=== PATIENT | female | born 1995 | race African-American/Black ===

== ENCOUNTER 2019-02-04 12:15 | Emergency (ER) | payer OTHER ==
[2019-02-04] MEDS ORDERED: IV NORMAL SALINE 1,000ML 1,000 ML IV SCH (14:01)
[2019-02-04 14:30] LABS: BASO % 0 % (0-3); EOS % 1 % (0-3); HEMATOCRIT 37.5 % (36.0-47.0); HEMOGLOBIN 12.7 g/dL (12.0-15.5); LYMPH # 1.3 x10^3/uL (1.0-4.8); LYMPH % 18 % (24-48); MEAN CORPUSCULAR HEMOGLOBIN 33 pg (25-35); MEAN CORPUSCULAR HGB CONC 34 g/dL (31-37); MEAN CORPUSCULAR VOLUME 96 fL (79-100); MONO # 0.6 x10^3/uL (0.0-1.1); MONO % 8 % (0-9); NEUT # 5.4 x10^3uL (1.8-7.7); NEUT % 74 % (31-73); PLATELET COUNT 246 x10^3/uL (140-400); RED BLOOD COUNT 3.92 x10^6/uL (3.50-5.40); WHITE BLOOD COUNT 7.3 x10^3/uL (4.0-11.0)
[2019-02-04 14:31] LABS: BACTERIA,URINE FEW /HPF (0-FEW); BILIRUBIN,URINE NEG (NEG); CLARITY,URINE HAZY; COLOR,URINE YELLOW; GLUCOSE,URINE NEG (NEG); NITRITE,URINE NEG (NEG); RBC,URINE 0 /HPF (0-2); SQUAMOUS EPITHELIAL CELL,UR MOD /LPF; UROBILINOGEN,URINE 0.2 mg/dL (0.2 mg/dL)
[2019-02-04 14:47] LABS: ALBUMIN 3.9 g/dL (3.4-5.0); ALBUMIN/GLOBULIN RATIO 0.9 (1.0-1.7); CALCIUM 9.5 mg/dL (8.5-10.1); CREATININE 0.7 mg/dL (0.6-1.0); GFR 124.4; POTASSIUM 3.8 mmol/L (3.5-5.1); TOTAL BILIRUBIN 0.4 mg/dL (0.2-1.0); TOTAL PROTEIN 8.2 g/dL (6.4-8.2)
--- NOTE | 2019-02-04 15:12 | RAD ---
First trimester ultrasound less than 14 weeks: Clinical indications: Positive test. Left-sided pelvic pain. Findings: Transabdominal study: Number of fetuses: Single. Average crown-rump length: 1.54 cm which corresponds to an approximate gestational age of 7 weeks and 6 days +/- 5 days. EDC is September 17, 2019. Sac shape and amniotic fluid volume: Normal. heart rate: 165 beats per minute Placenta location: Indeterminate due to the early stage of gestation. Cervical length: Greater than 3 cm. Extrachorionic hemorrhage: None. Uterus: No uterine fibroids are seen. Maternal ovaries: Right ovary: 2.5 cm x 3.7 cm x 3.8 cm. Normal. Color-flow Doppler: Present Left ovary: 1.7 cm x 4.0 cm x 5.1 cm. Normal. Color-flow Doppler: Present Adnexa: no adnexal masses are seen. Free fluid: None. Impression: Single intrauterine gestation with approximate gestational age of 7 weeks and 6 days with an EDC of September 17, 2019. heart rate is 165 beats per minute. Electronically signed by: Cuauhtemoc Logan MD (02/04/2019 3:09 PM) [place] [id number]
--- NOTE | 2019-02-04 15:25 | PHYS DOC ---
Past History Past Medical History: Other Past Surgical History: No Surgical History Alcohol Use: Occasionally Drug Use: Marijuana Adult General Chief Complaint Chief Complaint: MENSTRUAL PAIN/CRAMPS HPI HPI Patient is a 23 year old female who presents with complaint of pelvic pain. Patient states that her pain has been present over the past 4 days. Patient states that she usually worse in the morning. The patient states that she recently had a spontaneous vaginal delivery on November 07, 2018. The patient states that she has not had a menstrual period since her . She notes that on January 11, 2019, she took tests that were all positive. Patient has not followed with an [facility] for care at this time. Patient states that the pain is intermittent and sharp. States it radiates to her left lower back. Currently does not have pain. Denies any associated vaginal bleeding or discharge. Review of Systems Review of Systems Constitutional: Denies fever or chills [] Eyes: Denies change in visual acuity, redness, or eye pain [] HENT: Denies nasal congestion or sore throat [] Respiratory: Denies cough or shortness of breath [] Cardiovascular: Denies chest pain or edema[] GI: Abdominal pain, denies nausea, vomiting, bloody stools or diarrhea [] : Denies vaginal bleeding, dysuria or hematuria [] Musculoskeletal: Denies back pain or joint pain [] Integument: Denies rash or skin lesions [] Neurologic: Denies headache, focal weakness or sensory changes [] All other systems were reviewed and found to be within normal limits, except as documented in this note. Current Medications Current Medications Current Medications Medications (Trade) Dose Ordered Sig/[facility] Start Time Stop Time Status Last Admin Dose Admin Sodium Chloride 1,000 ml @ 1,000 mls/hr Q1H 02/04/19 14:01 02/04/19 15:00 DC 02/04/19 14:16 1,000 MLS/HR Allergies Allergies Allergies Coded Allergies Type Severity Reaction Last Updated Verified povidone-iodine Allergy Unknown 02/04/19 Yes soap Allergy Unknown 02/04/19 Yes Physical Exam Physical Exam Constitutional: Well developed, well nourished, no acute distress, non-toxic appearance. [] HENT: Normocephalic, atraumatic, bilateral external ears normal, oropharynx moist, no oral exudates, nose normal. [] Eyes: PERRLA, EOMI, conjunctiva normal, no discharge. [] Neck: Normal range of motion, no tenderness, supple, no stridor. [] Cardiovascular:Heart rate regular rhythm, no murmur [] Lungs & Thorax: Bilateral breath sounds clear to auscultation [] Abdomen: Bowel sounds normal, soft, no tenderness, no masses, no pulsatile masses. : Normal external exam, no blood in vaginal canal, cervical os closed, no cervical motion tenderness, no adnexal or midline tenderness on bimanual exam[] Skin: Warm, dry, no erythema, no rash. [] Back: No tenderness, no CVA tenderness. [] Extremities: No tenderness, no cyanosis, no clubbing, ROM intact, no edema. [] Neurologic: Alert and oriented X 3, normal motor function, normal sensory function, no focal deficits noted. [] Current Patient Data Vital Signs Vital Signs Date Time Temp Pulse Resp B/P (MAP) Pulse Ox O2 Delivery O2 Flow Rate FiO2 02/04/19 12:15 98.6 88 20 97 Room Air Lab Results Laboratory Tests Test 02/04/19 13:49 02/04/19 13:55 02/04/19 14:05 Urine Collection Type Unknown Urine Color Yellow Urine Clarity Hazy Urine pH 6.0 Urine Specific [place] 1.020 Urine Protein Neg Urine Glucose (UA) Neg mg/dL Urine Ketones (Stick) Neg mg/dL Urine Blood Neg Urine Nitrite Neg Urine Bilirubin Neg Urine Urobilinogen Dipstick 0.2 mg/dL Urine Leukocyte Esterase Trace Urine RBC 0 /HPF Urine WBC 1-4 /HPF Urine Squamous Epithelial Cells Mod /LPF Urine Bacteria Few /HPF Bedside Urine HCG, Qualitative hcg positive White Blood Count 7.3 x10^3/uL Red Blood Count 3.92 x10^6/uL Hemoglobin 12.7 g/dL Hematocrit 37.5 % Mean Corpuscular Volume 96 fL Mean Corpuscular Hemoglobin 33 pg Mean Corpuscular Hemoglobin Concent 34 g/dL Red Cell Distribution Width 13.0 % Platelet Count 246 x10^3/uL Neutrophils (%) (Auto) 74 % Lymphocytes (%) (Auto) 18 % Monocytes (%) (Auto) 8 % Eosinophils (%) (Auto) 1 % Basophils (%) (Auto) 0 % Neutrophils # (Auto) 5.4 x10^3uL Lymphocytes # (Auto) 1.3 x10^3/uL Monocytes # (Auto) 0.6 x10^3/uL Eosinophils # (Auto) 0.0 x10^3/uL Basophils # (Auto) 0.0 x10^3/uL Sodium Level 135 mmol/L Potassium Level 3.8 mmol/L Chloride Level 100 mmol/L Carbon Dioxide Level 27 mmol/L Anion Gap 8 Blood Urea Nitrogen 11 mg/dL Creatinine 0.7 mg/dL Estimated GFR (Cockcroft-Gault) 124.4 BUN/Creatinine Ratio 16 Glucose Level 58 mg/dL Calcium Level 9.5 mg/dL Total Bilirubin 0.4 mg/dL Aspartate Amino Transf (AST/SGOT) 17 U/L Alanine Aminotransferase (ALT/SGPT) 35 U/L Alkaline Phosphatase 84 U/L Total Protein 8.2 g/dL Albumin 3.9 g/dL Albumin/Globulin Ratio 0.9 Current Medications Medications (Trade) Dose Ordered Sig/Rebecca Route PRN Reason Start Time Stop Time Status Last Admin Dose Admin Sodium Chloride 1,000 ml @ 1,000 mls/hr Q1H IV 02/04/19 14:01 02/04/19 15:00 DC 02/04/19 14:16 EKG EKG Not performed[] Radiology/Procedures Radiology/[place] [address] IMAGING REPORT Signed PATIENT: MALINDA MURPHY ACCOUNT: [id number] : 1995 LOCATION: ER AGE: 23 SEX: F EXAM STATUS: REG ER ORD. PHYSICIAN: VINITA WILLETT MD REASON: positive test, left-sided pelvic pain PROCEDURE: OB <14 WKS First trimester ultrasound less than 14 weeks: Clinical indications: Positive test. Left-sided pelvic pain. Findings: Transabdominal study: Number of fetuses: Single. Average crown-rump length: 1.54 cm which corresponds to an approximate gestational age of 7 weeks and 6 days +/- 5 days. EDC is September 17, 2019. Sac shape and amniotic fluid volume: Normal. heart rate: 165 beats per minute Placenta location: Indeterminate due to the early stage of gestation. Cervical length: Greater than 3 cm. Extrachorionic hemorrhage: None. Uterus: No uterine fibroids are seen. Maternal ovaries: Right ovary: 2.5 cm x 3.7 cm x 3.8 cm. Normal. Color-flow Doppler: Present Left ovary: 1.7 cm x 4.0 cm x 5.1 cm. Normal. Color-flow Doppler: Present Adnexa: no adnexal masses are seen. Free fluid: None. Impression: Single intrauterine gestation with approximate gestational age of 7 weeks and 6 days with an EDC of September 17, 2019. heart rate is 165 beats per minute. Electronically signed by: Anamika Logan MD (02/04/2019 3:09 PM) [facility] DICTATED AND SIGNED BY: ANAMIKA LOGAN MD DATE: 02/04/19 1507 CC: VINITA WILLETT MD; PCP,NO ~ [] Course & Med Decision Making Course & Med Decision Making Pertinent Labs and Imaging studies reviewed. (See chart for details) [] Dragon Disclaimer Dragon Disclaimer This electronic medical record was generated, in whole or in part, using a voice recognition dictation system. Departure Departure: Impression: Primary Impression: Abdominal pain during Disposition: 01 HOME, SELF-CARE Condition: IMPROVED Referrals: PCP,NO (PCP) Twan Smiley MD Patient Instructions: Abdominal Pain During Additional Instructions: Follow-up with Dr. Smiley of [facility] in the next 1-2 weeks to establish care. Return to the emergency department for any worsening symptoms. Problem Qualifiers Primary Impression: Abdominal pain during Trimester: first trimester Qualified Codes: O26.891 - Other specified related conditions, first trimester; R10.9 - Unspecified abdominal pain VINITA WILLETT MD Feb 04, 2019 15:25
[2019-02-04 16:15] VITALS: BP 124/81
[2019-02-07 14:30] LABS: CHLAMYDIA PROBE Negative (Negative)
== END 2019-02-04 16:15 | disposition home or self-care (01) ==
LOC: ER 12:15
DX: O26.891 Other specified pregnancy related conditions, first trimester (principal); R10.2 Pelvic and perineal pain; Z3A.01 Less than 8 weeks gestation of pregnancy; Z88.8 Allergy status to other drugs, medicaments and biological substances
CPT/HCPCS: 36415; 76801; 80053; 81001; 81025; 84702; 85025; 86900; 86901; 87086; 87491; 87591; 99285; Q0111; J7030

== ENCOUNTER 2019-06-12 10:22 | Emergency (ER) | payer OTHER ==
[2019-06-12 10:22] VITALS: BP 107/63
--- NOTE | 2019-06-12 11:34 | PHYS DOC ---
Past History Past Medical History: Other Past Surgical History: No Surgical History Alcohol Use: Occasionally Drug Use: Marijuana Adult General Chief Complaint Chief Complaint: OTHER COMPLAINTS HPI HPI 24-year-old female presents with vaginal discharge. The patient's noticed within the last couple of days that she is having a thicker mucus discharge. It is white, but very thick and stringy. She denies itching or pain. She has not had a menses since last February. She is breast-feeding. The patient is sexually active. She denies fever or chills. Review of Systems Review of Systems Constitutional: Denies fever or chills [] Eyes: Denies change in visual acuity, redness, or eye pain [] HENT: Denies nasal congestion or sore throat [] Respiratory: Denies cough or shortness of breath [] Cardiovascular: No additional information not addressed in HPI [] GI: Denies abdominal pain, nausea, vomiting, bloody stools or diarrhea [] : thick vaginal discharge[] Musculoskeletal: Denies back pain or joint pain [] Integument: Denies rash or skin lesions [] Neurologic: Denies headache, focal weakness or sensory changes [] Endocrine: Denies polyuria or polydipsia [] All other systems were reviewed and found to be within normal limits, except as documented in this note. Allergies Allergies Allergies Coded Allergies Type Severity Reaction Last Updated Verified povidone-iodine Allergy Unknown 02/04/19 Yes soap Allergy Unknown 02/04/19 Yes Physical Exam Physical Exam Constitutional: Well developed, well nourished, no acute distress, non-toxic appearance. [] HENT: Normocephalic, atraumatic, bilateral external ears normal, oropharynx moist, no oral exudates, nose normal. [] Eyes: PERRLA, EOMI, conjunctiva normal, no discharge. [] Neck: Normal range of motion, no tenderness, supple, no stridor. [] Cardiovascular:Heart rate regular rhythm, no murmur [] Lungs & Thorax: Bilateral breath sounds clear to auscultation [] Abdomen: Bowel sounds normal, soft, no tenderness, no masses, no pulsatile masses. [] Skin: Warm, dry, no erythema, no rash. [] Back: No tenderness, no CVA tenderness. [] Extremities: No tenderness, no cyanosis, no clubbing, ROM intact, no edema. [] Neurologic: Alert and oriented X 3, normal motor function, normal sensory function, no focal deficits noted. [] Psychologic: Affect normal, judgement normal, mood normal. : Normal external genitalia. Thick vaginal discharge, white to light yellow. No pain with exam. [] EKG EKG [] Radiology/Procedures Radiology/Procedures [] Course & Med Decision Making Course & Med Decision Making Pertinent Labs and Imaging studies reviewed. (See chart for details) The patient's wet prep is negative. Her GC chlamydia is pending. Her urinalysis is negative for infection. She is . Changes are likely related to her . She stable for discharge at this time. [] Dragon Disclaimer Dragon Disclaimer This electronic medical record was generated, in whole or in part, using a voice recognition dictation system. Departure Departure: Impression: Primary Impression: Vaginal discharge Additional Impression: Disposition: HOME, SELF-CARE Condition: STABLE Referrals: PCPNO (PCP) Patient Instructions: Problem Qualifiers VERONICA GRIFFITHS DO Jun 12, 2019 11:34
[2019-06-12 13:05] LABS: BACTERIA,URINE FEW /HPF (0-FEW); BILIRUBIN,URINE NEG (NEG); CLARITY,URINE HAZY; COLOR,URINE YELLOW; GLUCOSE,URINE NEG (NEG); NITRITE,URINE NEG (NEG); RBC,URINE RARE /HPF (0-2); SQUAMOUS EPITHELIAL CELL,UR MOD /LPF; UROBILINOGEN,URINE 0.2 mg/dL (0.2 mg/dL)
[2019-06-12 13:14] LABS: U PREG PATIENT POSITIVE (NEG)
[2019-06-16 00:06] LABS: CHLAMYDIA PROBE Negative (Negative)
== END 2019-06-12 13:31 | disposition home or self-care (01) ==
LOC: ER 10:26
DX: O46.91 Antepartum hemorrhage, unspecified, first trimester (principal); Z3A.00 Weeks of gestation of pregnancy not specified
CPT/HCPCS: 81001; 81025; 87086; 87491; 87591; 99284; Q0111; 36415

== ENCOUNTER 2019-06-29 16:11 | Emergency (ER) | payer OTHER ==
--- NOTE | 2019-06-29 17:04 | PHYS DOC ---
Past History Past Medical History: No Pertinent History Past Surgical History: No Surgical History Smoking: Non-smoker Alcohol Use: None Drug Use: Marijuana Adult General Chief Complaint Chief Complaint: VAGINAL BLEEDING [facility] HPI Patient is a 24-year-old female presents with vaginal bleeding that started several hours ago. Patient is approximately 28 weeks . Uncertain as to what her blood type is. She denies having received any Rh immunoglobulin. She reports some lower abdominal pain and cramping. Some nausea and vomiting this morning as well.[] Review of Systems Review of Systems Constitutional: Denies fever or chills [] Eyes: Denies change in visual acuity, redness, or eye pain [] HENT: Denies nasal congestion or sore throat [] Respiratory: Denies cough or shortness of breath [] Cardiovascular: No additional information not addressed in HPI [] GI: Denies abdominal pain, nausea, vomiting, bloody stools or diarrhea [] : Denies dysuria or hematuria, see history of present illness [] Musculoskeletal: Denies back pain or joint pain [] Integument: Denies rash or skin lesions [] Neurologic: Denies headache, focal weakness or sensory changes [] Endocrine: Denies polyuria or polydipsia [] All other systems were reviewed and found to be within normal limits, except as documented in this note. Allergies Allergies Allergies Coded Allergies Type Severity Reaction Last Updated Verified povidone-iodine Allergy Unknown 06/29/19 Yes soap Allergy Unknown 06/29/19 Yes Physical Exam Physical Exam Constitutional: Well developed, well nourished, no acute distress, non-toxic appearance. [] HENT: Normocephalic, atraumatic, bilateral external ears normal, oropharynx moist, no oral exudates, nose normal. [] Eyes: PERRLA, EOMI, conjunctiva normal, no discharge. [] Neck: Normal range of motion, no tenderness, supple, no stridor. [] Cardiovascular:Heart rate regular rhythm, no murmur [] Lungs & Thorax: Bilateral breath sounds clear to auscultation [] Abdomen: Bowel sounds normal, soft, no tenderness, fundus above the umbilicus, heart tones as noted in the nurse's note, no pulsatile masses. [] Skin: Warm, dry, no erythema, no rash. [] Back: No tenderness, no CVA tenderness. [] Extremities: No tenderness, no cyanosis, no clubbing, ROM intact, no edema. [] Neurologic: Alert and oriented X 3, normal motor function, normal sensory function, no focal deficits noted. [] Psychologic: Affect normal, judgement normal, mood normal. [] Current Patient Data Vital Signs Vital Signs Date Time Temp Pulse Resp B/P (MAP) Pulse Ox O2 Delivery O2 Flow Rate FiO2 06/29/19 16:29 98.3 103 18 98 Room Air EKG EKG [] Radiology/Procedures Radiology/Procedures [] Course & Med Decision Making Course & Med Decision Making Pertinent Labs and Imaging studies reviewed. (See chart for details) ED course: Patient arrived, was placed in bed, in tolerated exam well. A sterile speculum was not available in the emergency department so speculum exam was not performed. Due to the patient being approximately 28 weeks based on previous ultrasound obtained on 02/04/2019, consultation was made with initially her primary care team, Joy Bustamante, who is team recommended that she go to . Spoke with Dr. Mathur at who accepts her to be seen at the OB triage. Discussed plan with patient and family who voiced understanding. He was transferred in improved condition. Medical decision making: Based on review of old records, patient is 28 weeks 4 days a some the ultrasound of 02/04/2019. Patient is being transferred due to potential viability of the baby. Higher level of care is available at OB[] Dragon Disclaimer Dragon Disclaimer This electronic medical record was generated, in whole or in part, using a voice recognition dictation system. Departure Departure: Impression: Primary Impression: Vaginal bleeding during Disposition: 05 TRANSFER OTHER Condition: IMPROVED Referrals: PCP,TIM (PCP) Patient Instructions: Vaginal Bleeding During , Third Trimester Additional Instructions: Go directly to [facility] Triage. Do not have anything to eat or drink along the way. Return to the ER if worsening pain, bleeding, or any other concerns. ILDEFONSO KELLY DO Jun 29, 2019 17:04
[2019-06-29 17:37] VITALS: BP 117/62
== END 2019-06-29 17:50 | disposition short-term general hospital (02) ==
LOC: ER 16:11
DX: O46.93 Antepartum hemorrhage, unspecified, third trimester (principal); O21.9 Vomiting of pregnancy, unspecified; Z3A.28 28 weeks gestation of pregnancy; Z88.8 Allergy status to other drugs, medicaments and biological substances
CPT/HCPCS: 99285

== ENCOUNTER 2019-08-04 23:00 | Emergency (ER) | payer OTHER ==
[~2019-08-04] VITALS: Ht 167.6 cm; Wt 78.1 kg
[2019-08-04] MEDS ORDERED: MORPHINE SULFATE 4 MG/ML DISP.SYRIN. IV/SQ PRN (23:30)
--- NOTE | 2019-08-04 23:31 | PHYS DOC ---
Past History Past Medical History: No Pertinent History Past Surgical History: Smoking: Non-smoker Alcohol Use: None Drug Use: Marijuana Adult General Chief Complaint Chief Complaint: ABDOMINAL PAIN HPI HPI Patient is a 24-year-old female who presents to the emergency department for evaluation. She states that for the past 3-4 days, she has had some right lower quadrant abdominal pain. She has not had any nausea, vomiting, diarrhea, constipation. She has not had any vaginal discharge, or significant vaginal bleeding. She has not had any urinary symptoms, fevers, or chills. There are no alleviating or exacerbating factors to her symptoms. The patient did undergo an emergent at about 29 and half weeks, due to precipitous breech delivery, about 5 weeks ago. She is breast-feeding, but her bleeding has resolved after her delivery. Review of Systems Review of Systems Constitutional: Denies fever or chills [] Eyes: Denies change in visual acuity, redness, or eye pain [] HENT: Denies nasal congestion or sore throat [] Respiratory: Denies cough or shortness of breath [] Cardiovascular: The patient denies any shortness of breath, chest pain, palpitations, or orthopnea [] GI: No additional information not addressed in HPI [] : Denies dysuria or hematuria [] Musculoskeletal: Denies back pain or joint pain [] Integument: Denies rash or skin lesions [] Neurologic: Denies headache, focal weakness or sensory changes [] Endocrine: Denies polyuria or polydipsia [] All other systems were reviewed and found to be within normal limits, except as documented in this note. Allergies Allergies Allergies Coded Allergies Type Severity Reaction Last Updated Verified povidone-iodine Allergy Unknown 06/29/19 Yes soap Allergy Unknown 06/29/19 Yes Physical Exam Physical Exam PHYSICAL EXAM: CONSTITUTIONAL: Well developed, well nourished HEAD: normocephalic, atraumatic EENT: PERRL, EOMI. Conjunctivae normal color, sclerae non-icteric; moist mucous membranes. NECK: Supple, non-tender; no meningismus. LUNGS: Lungs CTA, breathing even and unlabored. Normal air movement. HEART: Regular rate and rhythm, no murmur CHEST: No deformity; non-tender ABDOMEN: The abdomen is soft, there is mild tenderness to palpation diffusely in the right lower quadrant of the abdomen, without rebound or guarding, the remainder the abdomen, including the suprapubic and pelvic area, is generally non-tender, no masses or bruits. EXTREM: Normal ROM; no deformity, no calf tenderness. Normal pulses palpable in all extremities. There is no pedal edema. SKIN: No rash; no diaphoresis NEURO: Alert; normal speech and cognition; CN's grossly intact; strength grossly intact without focal deficit. BACK: No CVA TTP. Current Patient Data Vital Signs Vital Signs Date Time Temp Pulse Resp B/P (MAP) Pulse Ox O2 Delivery O2 Flow Rate FiO2 08/04/19 23:15 98.0 77 18 99 Room Air Lab Results Laboratory Tests Test 08/04/19 23:30 08/04/19 23:33 08/04/19 23:44 White Blood Count 8.8 x10^3/uL Red Blood Count 3.83 x10^6/uL Hemoglobin 12.6 g/dL Hematocrit 37.3 % Mean Corpuscular Volume 97 fL Mean Corpuscular Hemoglobin 33 pg Mean Corpuscular Hemoglobin Concent 34 g/dL Red Cell Distribution Width 12.5 % Platelet Count 241 x10^3/uL Neutrophils (%) (Auto) 71 % Lymphocytes (%) (Auto) 24 % Monocytes (%) (Auto) 5 % Eosinophils (%) (Auto) 1 % Basophils (%) (Auto) 0 % Neutrophils # (Auto) 6.2 x10^3uL Lymphocytes # (Auto) 2.1 x10^3/uL Monocytes # (Auto) 0.4 x10^3/uL Eosinophils # (Auto) 0.1 x10^3/uL Basophils # (Auto) 0.0 x10^3/uL Sodium Level 140 mmol/L Potassium Level 3.5 mmol/L Chloride Level 104 mmol/L Carbon Dioxide Level 27 mmol/L Anion Gap 9 Blood Urea Nitrogen 11 mg/dL Creatinine 0.8 mg/dL Estimated GFR (Cockcroft-Gault) 105.8 BUN/Creatinine Ratio 14 Glucose Level 108 mg/dL Calcium Level 9.1 mg/dL Total Bilirubin 0.4 mg/dL Aspartate Amino Transf (AST/SGOT) 21 U/L Alanine Aminotransferase (ALT/SGPT) 36 U/L Alkaline Phosphatase 94 U/L Total Protein 8.2 g/dL Albumin 3.9 g/dL Albumin/Globulin Ratio 0.9 Lipase 239 U/L Urine Collection Type Unknown Urine Color Yellow Urine Clarity Clear Urine pH 5.5 Urine Specific [place] 1.015 Urine Protein Neg Urine Glucose (UA) Neg mg/dL Urine Ketones (Stick) Neg mg/dL Urine Blood Mod Urine Nitrite Neg Urine Bilirubin Neg Urine Urobilinogen Dipstick 0.2 mg/dL Urine Leukocyte Esterase Neg Urine RBC Occ /HPF Urine WBC 1-4 /HPF Urine Squamous Epithelial Cells Few /LPF Urine Bacteria 0 /HPF Bedside Urine HCG, Qualitative hcg negative Current Medications Medications (Trade) Dose Ordered Sig/Rebecca Route PRN Reason Start Time Stop Time Status Last Admin Dose Admin Morphine Sulfate (Morphine 4mg Syringe) 4 mg PRN Q15MIN PRN IV/SQ PAIN GREATER THAN 3/10 08/04/19 23:30 08/05/19 23:29 Sodium Chloride 1,000 ml @ 1,000 mls/hr Q1H IV 08/04/19 23:45 08/05/19 00:44 Iohexol (Omnipaque 300 Mg/ml) 75 ml 1X ONCE IV 08/04/19 23:45 08/04/19 23:46 DC 08/05/19 00:18 Info (Do NOT chart on this entry -- for MONITORING) 1 each PRN DAILY PRN MC SEE COMMENTS 08/04/19 23:45 08/06/19 23:44 EKG EKG [] Radiology/Procedures Radiology/Procedures PROCEDURE: CT ABD PELV W/ IV CONTRST ONLY PQRS Compliance statement: One or more of the following individualized dose reduction techniques were utilized for this examination: 1. Automated exposure control. 2. Adjustment of the mA and/or kV according to patient size. 3. Use of iterative reconstruction technique. Indication:Right lower quadrant pain. TECHNIQUE: CT abdomen and pelvis with IV contrast with multiplanar reformats. COMPARISON: None FINDINGS: Heart is normal in size. No pericardial or pleural effusion. Clear lung bases. 1.1 cm focus of low attenuation is seen in the subcapsular segment 2 likely focal fat infiltration. Otherwise, liver, spleen, gallbladder, pancreas, adrenals and kidneys are within normal limits. Trace amount of free pelvic fluid. No ascites. No enlarged retroperitoneal or pelvic adenopathy. No bowel obstruction. Normal appendix. No right lower quadrant inflammatory changes. Anteverted uterus. Urinary bladder demonstrates no radiopaque stone. No pneumoperitoneum. No suspicious bony lesion. IMPRESSION: No bowel obstruction. Normal appendix. No nephrolithiasis or hydronephrosis.[] Course & Med Decision Making Course & Med Decision Making Pertinent Labs and Imaging studies reviewed. (See chart for details) []Patient remains stable. I discussed test results, the need for close follow- up, and return precautions. Dragon Disclaimer Dragon Disclaimer This electronic medical record was generated, in whole or in part, using a voice recognition dictation system. Departure Departure: Impression: Primary Impression: Abdominal pain Disposition: 01 HOME, SELF-CARE Condition: STABLE Patient Instructions: Abdominal Pain (Nonspecific) Additional Instructions: Tylenol and/or Motrin as needed for pain. Follow-up with your primary care provider or the physician of your choice, for further evaluation and treatment. Return to medical care for any new or worsening symptoms, development of increasing pain, vomiting, fever, or any other new, or concerning symptoms. AMANDA LOFTON MD Aug 04, 2019 23:31
[2019-08-04] MEDS ORDERED: IV NORMAL SALINE 1,000ML 1,000 ML IV SCH (23:45)
[2019-08-04] MEDS ORDERED: CONTRAST GIVEN MC PRN (23:45)
[2019-08-04] MEDS ORDERED: IOHEXOL 300 MG/ML 75 ML VIAL. IV ONE (23:45)
[2019-08-05 00:06] LABS: BASO % 0 % (0-3); EOS # 0.1 x10^3/uL (0.0-0.7); EOS % 1 % (0-3); HEMATOCRIT 37.3 % (36.0-47.0); HEMOGLOBIN 12.6 g/dL (12.0-15.5); LYMPH # 2.1 x10^3/uL (1.0-4.8); LYMPH % 24 % (24-48); MEAN CORPUSCULAR HEMOGLOBIN 33 pg (25-35); MEAN CORPUSCULAR HGB CONC 34 g/dL (31-37); MEAN CORPUSCULAR VOLUME 97 fL (79-100); MONO # 0.4 x10^3/uL (0.0-1.1); MONO % 5 % (0-9); NEUT # 6.2 x10^3uL (1.8-7.7); NEUT % 71 % (31-73); PLATELET COUNT 241 x10^3/uL (140-400); RED BLOOD COUNT 3.83 x10^6/uL (3.50-5.40); RED CELL DISTRIBUTION WIDTH 12.5 % (11.5-14.5); WHITE BLOOD COUNT 8.8 x10^3/uL (4.0-11.0)
[2019-08-05 00:10] LABS: CLARITY,URINE CLEAR; COLOR,URINE YELLOW
[2019-08-05 00:11] LABS: BACTERIA,URINE 0 /HPF (0-FEW); BILIRUBIN,URINE NEG (NEG); GLUCOSE,URINE NEG (NEG); NITRITE,URINE NEG (NEG); RBC,URINE OCC /HPF (0-2); SQUAMOUS EPITHELIAL CELL,UR FEW /LPF; UROBILINOGEN,URINE 0.2 mg/dL (0.2 mg/dL)
[2019-08-05 00:16] LABS: ALBUMIN 3.9 g/dL (3.4-5.0); ALBUMIN/GLOBULIN RATIO 0.9 (1.0-1.7); CALCIUM 9.1 mg/dL (8.5-10.1); CREATININE 0.8 mg/dL (0.6-1.0); GFR 105.8; POTASSIUM 3.5 mmol/L (3.5-5.1); TOTAL BILIRUBIN 0.4 mg/dL (0.2-1.0); TOTAL PROTEIN 8.2 g/dL (6.4-8.2)
--- NOTE | 2019-08-05 00:19 | RAD ---
PQRS Compliance statement: One or more of the following individualized dose reduction techniques were utilized for this examination: 1. Automated exposure control. 2. Adjustment of the mA and/or kV according to patient size. 3. Use of iterative reconstruction technique. Indication:Right lower quadrant pain. TECHNIQUE: CT abdomen and pelvis with IV contrast with multiplanar reformats. COMPARISON: None FINDINGS: Heart is normal in size. No pericardial or pleural effusion. Clear lung bases. 1.1 cm focus of low attenuation is seen in the subcapsular segment 2 likely focal fat infiltration. Otherwise, liver, spleen, gallbladder, pancreas, adrenals and kidneys are within normal limits. Trace amount of free pelvic fluid. No ascites. No enlarged retroperitoneal or pelvic adenopathy. No bowel obstruction. Normal appendix. No right lower quadrant inflammatory changes. Anteverted uterus. Urinary bladder demonstrates no radiopaque stone. No pneumoperitoneum. No suspicious bony lesion. IMPRESSION: No bowel obstruction. Normal appendix. No nephrolithiasis or hydronephrosis. Electronically signed by: Lee Mirza DO (08/05/2019 12:16 AM) [facility]
[2019-08-05 00:34] VITALS: BP 116/74
== END 2019-08-05 01:03 | disposition home or self-care (01) ==
LOC: ER 23:00
DX: R10.31 Right lower quadrant pain (principal); Z98.890 Other specified postprocedural states; Z88.8 Allergy status to other drugs, medicaments and biological substances; Z91.048 Other nonmedicinal substance allergy status
CPT/HCPCS: 36415; 74177; 80053; 81001; 81025; 83690; 85025; 96374; 99285; J2270; Q9967; J7030

== ENCOUNTER 2019-08-24 14:25 | Emergency (ER) | payer OTHER ==
[~2019-08-24] VITALS: Ht 167.6 cm; Wt 72.8 kg
[2019-08-24] MEDS ORDERED: PENI500T PO (16:04)
--- NOTE | 2019-08-24 16:05 | PHYS DOC ---
Past History Past Medical History: No Pertinent History Past Surgical History: Smoking: Non-smoker Alcohol Use: None Drug Use: Marijuana Adult General Chief Complaint Chief Complaint: EARACHE/EAR PAIN HPI HPI 24-year-old female presents with right-sided throat and ear pain for the last 2 days. Has been getting worse. It is painful to swallow. Patient has not had a cough. She has no runny nose. She denies fever or chills. He has no other complaints at this time. Review of Systems Review of Systems Constitutional: Denies fever or chills [] Eyes: Denies change in visual acuity, redness, or eye pain [] HENT: sore throat [] Respiratory: Denies cough or shortness of breath [] Cardiovascular: No additional information not addressed in HPI [] GI: Denies abdominal pain, nausea, vomiting, bloody stools or diarrhea [] : Denies dysuria or hematuria [] Musculoskeletal: Denies back pain or joint pain [] Integument: Denies rash or skin lesions [] Neurologic: Denies headache, focal weakness or sensory changes [] Endocrine: Denies polyuria or polydipsia [] All other systems were reviewed and found to be within normal limits, except as documented in this note. Allergies Allergies Allergies Coded Allergies Type Severity Reaction Last Updated Verified povidone-iodine Allergy Unknown 06/29/19 Yes soap Allergy Unknown 06/29/19 Yes Physical Exam Physical Exam Constitutional: Well developed, well nourished, no acute distress, non-toxic appearance. [] HENT: Normocephalic, atraumatic, bilateral external ears normal, oropharynx erythematous with right tonsillar exudates, nose normal. [] Eyes: PERRLA, EOMI, conjunctiva normal, no discharge. [] Neck: Normal range of motion, no tenderness, supple, no stridor. [] Cardiovascular:Heart rate regular rhythm, no murmur [] Lungs & Thorax: Bilateral breath sounds clear to auscultation [] Abdomen: Bowel sounds normal, soft, no tenderness, no masses, no pulsatile masses. [] Skin: Warm, dry, no erythema, no rash. [] Back: No tenderness, no CVA tenderness. [] Extremities: No tenderness, no cyanosis, no clubbing, ROM intact, no edema. [] Neurologic: Alert and oriented X 3, normal motor function, normal sensory function, no focal deficits noted. [] Psychologic: Affect normal, judgement normal, mood normal. [] Current Patient Data Vital Signs Vital Signs Date Time Temp Pulse Resp B/P (MAP) Pulse Ox O2 Delivery O2 Flow Rate FiO2 08/24/19 14:39 98.0 86 16 99 Room Air EKG EKG [] Radiology/Procedures Radiology/Procedures [] Course & Med Decision Making Course & Med Decision Making Pertinent Labs and Imaging studies reviewed. (See chart for details) Patient appears to have strep pharyngitis. I will treat her with penicillin. She is stable for discharge at this time. [] Dragon Disclaimer Dragon Disclaimer This electronic medical record was generated, in whole or in part, using a voice recognition dictation system. Departure Departure: Impression: Primary Impression: Strep pharyngitis Disposition: 01 HOME, SELF-CARE Condition: STABLE Referrals: PCP,NO (PCP) Patient Instructions: Strep Throat, [id number] Scripts Penicillin V Potassium (PENICILLIN V POTASSIUM) 500 Mg Tablet 1 TAB PO BID for strep throat, #20 TAB Prov: VERONICA GRIFFITHS DO 08/24/19 VERONICA GRIFFITHS DO Aug 24, 2019 16:05
[2019-08-24 16:22] VITALS: BP 110/56
== END 2019-08-24 16:21 | disposition home or self-care (01) ==
LOC: ER 14:25
DX: J02.0 Streptococcal pharyngitis (principal); B95.0 Streptococcus, group A, as the cause of diseases classified elsewhere; Z88.8 Allergy status to other drugs, medicaments and biological substances; Z91.048 Other nonmedicinal substance allergy status
CPT/HCPCS: 99283

== ENCOUNTER 2019-12-19 11:20 | Emergency (ER) | payer OTHER ==
[~2019-12-19] VITALS: Ht 172.7 cm; Wt 72.0 kg
[~2019-12-19 11:20] MED LIST: PENI500T PO
[2019-12-19 11:37] VITALS: BP 111/51
--- NOTE | 2019-12-19 11:46 | PHYS DOC ---
Past History Past Medical History: No Pertinent History Past Surgical History: Smoking: Non-smoker Alcohol Use: None Drug Use: Marijuana Adult General Chief Complaint Chief Complaint: SORE THROAT [facility] HPI 24-year-old female presents with sore throat. She started a sore throat yesterday. It has rapidly increased significantly. It is very painful to swallow anything at this time. She also does have some general "head congestion". She denies cough. She has had strep in the past. She is not allergic to any antibiotics. If she has strep she would prefer injection versus pills. She is not sure if he's had a fever. She denies any other concerns or complaints. Review of Systems Review of Systems Constitutional: Denies fever or chills [] Eyes: Denies change in visual acuity, redness, or eye pain [] HENT: sore throat [] Respiratory: Denies cough or shortness of breath [] Cardiovascular: No additional information not addressed in HPI [] GI: Denies abdominal pain, nausea, vomiting, bloody stools or diarrhea [] : Denies dysuria or hematuria [] Musculoskeletal: Denies back pain or joint pain [] Integument: Denies rash or skin lesions [] Neurologic: Denies headache, focal weakness or sensory changes [] Endocrine: Denies polyuria or polydipsia [] All other systems were reviewed and found to be within normal limits, except as documented in this note. Allergies Allergies Allergies Coded Allergies Type Severity Reaction Last Updated Verified povidone-iodine Allergy Unknown 06/29/19 Yes soap Allergy Unknown 06/29/19 Yes Physical Exam Physical Exam Constitutional: Well developed, well nourished, no acute distress, non-toxic appearance. [] HENT: Normocephalic, atraumatic, bilateral external ears normal, oropharynx erythematous bilaterally, no oral exudates, nose congested[] Eyes: PERRLA, EOMI, conjunctiva normal, no discharge. [] Neck: Normal range of motion, no tenderness, supple, no stridor. [] Cardiovascular: Heart rate regular rhythm, no murmur [] Lungs & Thorax: Bilateral breath sounds clear to auscultation [] Abdomen: Bowel sounds normal, soft, no tenderness, no masses, no pulsatile masses. [] Skin: Warm, dry, no erythema, no rash. [] Back: No tenderness, no CVA tenderness. [] Extremities: No tenderness, no cyanosis, no clubbing, ROM intact, no edema. [] Neurologic: Alert and oriented X 3, normal motor function, normal sensory function, no focal deficits noted. [] Psychologic: Affect normal, judgement normal, mood normal. [] EKG EKG [] Radiology/Procedures Radiology/Procedures [] Course & Med Decision Making Course & Med Decision Making Pertinent Labs and Imaging studies reviewed. (See chart for details) The patient's rapid strep is positive. I will treat her with Bicillin injection per her request. She is stable for discharge at this time. [] Dragon Disclaimer Dragon Disclaimer This electronic medical record was generated, in whole or in part, using a voice recognition dictation system. Departure Departure: Impression: Primary Impression: Strep pharyngitis Disposition: 01 HOME, SELF-CARE Condition: STABLE Referrals: YOSHI WOODWARD MD (PCP) Patient Instructions: Strep Throat, [id number] VERONICA GRIFFITHS DO Dec 19, 2019 11:46
[2019-12-19] MEDS ORDERED: PENICILLIN G BENZATHINE LA 1,200,000 UNIT/2 ML DISP.SYRIN. IM ONE (12:15)
== END 2019-12-19 11:55 | disposition home or self-care (01) ==
LOC: ER 11:20
DX: J02.0 Streptococcal pharyngitis (principal); B95.0 Streptococcus, group A, as the cause of diseases classified elsewhere; Z88.8 Allergy status to other drugs, medicaments and biological substances
CPT/HCPCS: 87880; 99283

== ENCOUNTER 2020-02-06 06:00 | Emergency (ER) | payer OTHER ==
[~2020-02-06] VITALS: Ht 167.6 cm; Wt 85.1 kg
[2020-02-06 06:24] VITALS: BP 107/60
[2020-02-06] MEDS ORDERED: DEXAMETHASONE 4 MG TABLET PO ONE (06:30)
[2020-02-06] MEDS ORDERED: AMOX1TAB61 PO (06:56)
--- NOTE | 2020-02-06 06:56 | PHYS DOC ---
Past History Past Medical History: Other Additional Past Medical Histor: scoliosis Past Surgical History: , Other Additional Past Surgical Histo: left ankle repair Smoking: Non-smoker Alcohol Use: Occasionally Drug Use: Marijuana General Adult EDM: Chief Complaint: SORE THROAT HPI: HPI: 24 year old female presents with history of sore throat since yesterday. Denies fever. Reports history of recurrent strep throat. Reports has had 3 positive tests in the last year. Reports associated left earache. Denies known sick contacts. Review of Systems: Review of Systems: Constitutional: Denies fever or chills Eyes: Denies redness or eye pain HENT: Denies nasal congestion; reports sore throat Respiratory: Denies cough or shortness of breath Cardiovascular: Denies chest pain or palpitations GI: Denies abdominal pain, nausea, or vomiting : Denies dysuria or hematuria Musculoskeletal: Denies back pain or joint pain Integument: Denies rash or skin lesions Neurologic: Denies headache, focal weakness or sensory changes Complete systems were reviewed and found to be within normal limits, except as documented in this note. Current Medications: Current Meds: Current Medications Medications (Trade) Dose Ordered Sig/Rebecca Start Time Stop Time Status Last Admin Dose Admin Dexamethasone (Decadron) 10 mg 1X ONCE 02/06/20 06:30 02/06/20 06:31 DC 02/06/20 06:22 10 MG Allergies: Allergies: Allergies Coded Allergies Type Severity Reaction Last Updated Verified povidone-iodine Allergy Unknown 06/29/19 Yes soap Allergy Unknown 06/29/19 Yes Physical Exam: PE: Constitutional: Well developed, well nourished, no acute distress, non-toxic appearance HENT: Normocephalic, atraumatic, pharynx erythematous without exudate, bilateral TMs clear Eyes: Conjunctiva normal, no discharge Neck: Normal range of motion, no tenderness, supple Lungs & Thorax: No respiratory distress, equal chest rise and fall Skin: Warm, dry, no erythema, no rash Extremities: No tenderness, ROM intact, no edema Neurologic: Alert and oriented X 3, no focal deficits noted Psychologic: Affect normal, judgment normal Current Patient Data: Labs: Laboratory Tests Test 02/06/20 06:15 Group A Streptococcus Rapid Negative (NEGATIVE) Vital Signs: Vital Signs Date Time Temp Pulse Resp B/P (MAP) Pulse Ox O2 Delivery O2 Flow Rate FiO2 02/06/20 06:24 97.9 74 16 107/60 (76) 98 Room Air EKG: EKG: [] Radiology/Procedures: Radiology/Procedures: [] Course & Med Decision Making: Course & Med Decision Making Pertinent Lab studies reviewed. (See chart for details) Patient presents with report of sore throat. History of frequent strep pharyngitis. Rapid strep negative. Symptomatic treatment provided with oral steroid. Prescription for empiric antibiotics provided with instructions to "watch and wait ". Patient stable for discharge with outpatient follow-up with PCP. Discussed findings and plan with patient, who acknowledges understanding and agreement. Dragon Disclaimer: DragVinobo Disclaimer: This electronic medical record was generated, in whole or in part, using a voice recognition dictation system. Departure Departure: Impression: Primary Impression: Pharyngitis Qualified Codes: J02.9 - Acute pharyngitis, unspecified Disposition: HOME, SELF-CARE Condition: STABLE Referrals: YOSHI WOODWARD MD (PCP) Patient Instructions: Viral and Bacterial Pharyngitis, [id number] Additional Instructions: Hold antibiotics for 48 hours. If symptoms worsen or for fever > 100.3 F after 48 hours then start antibiotics as prescribed. Scripts Amoxicillin/Potassium Clav (AUGMENTIN 875-125 TABLET) 1 Each Tablet 1 TAB PO BID for Pharyngitis for 7 Days, #14 TAB 0 Refills Prov: DARIO NGUYEN DO 02/06/20 DARIO NGUYEN DO Feb 06, 2020 06:56
== END 2020-02-06 07:05 | disposition home or self-care (01) ==
LOC: ER 06:00
DX: J02.9 Acute pharyngitis, unspecified (principal); H92.02 Otalgia, left ear; Z88.8 Allergy status to other drugs, medicaments and biological substances
CPT/HCPCS: 87070; 87880; 99283; J8540

== ENCOUNTER 2020-02-19 16:06 | Emergency (ER) | payer OTHER ==
[~2020-02-19] VITALS: Ht 167.6 cm; Wt 85.1 kg
[~2020-02-19 16:06] MED LIST changes: +AMOX1TAB61 PO
[2020-02-19 17:20] VITALS: BP 136/84
[2020-02-19] MEDS ORDERED: IV RINGERS SOLUTION,LACTATED 1,000 ML IV SCH (18:12)
--- NOTE | 2020-02-19 18:17 | PHYS DOC ---
Past History Past Medical History: Other Additional Past Medical Histor: scoliosis Past Surgical History: , Other Additional Past Surgical Histo: left ankle repair Smoking: Non-smoker Alcohol Use: Occasionally Drug Use: Marijuana General Adult EDM: Chief Complaint: FLU SYMPTOM HPI: HPI: " .. I ve hanging out with my friend and her mom ....her mom is Covid +.. I got scared.. and been feeling short of breath...." Patient is a 24 year old female who presents with above hx and complaints of shortness of breath with possible Covid 19 exposure. Pt. works at [employer]. Pt. normally healthy no history immunosuppression. No history of recent travel. Has been exposed to a friend that recently came back positive for COVID. Patient does smoke marijuana. Patient does have children but they have no symptoms. Patient has been practicing social isolation however appears that people and her social isolation [place] have tested positive. Review of Systems: Review of Systems: Constitutional: Denies fever or chills Eyes: Denies change in visual acuity HENT: Denies nasal congestion or sore throat Respiratory: Denies cough or shortness of breath Cardiovascular: Denies chest pain or edema GI: Denies abdominal pain, nausea, vomiting, bloody stools or diarrhea : Denies dysuria Musculoskeletal: Denies back pain or joint pain Integument: Denies rash Neurologic: Denies headache, focal weakness or sensory changes Endocrine: Denies polyuria or polydipsia Lymphatic: Denies swollen glands Psychiatric: Denies depression or anxiety Heart Score: Risk Factors: Risk Factors: DM, Current or recent (<one month) smoker, HTN, HLP, family history of CAD, obesity. Risk Scores: Score 0 - 3: 2.5% MACE over next 6 weeks - Discharge Home Score 4 - 6: 20.3% MACE over next 6 weeks - Admit for Clinical Observation Score 7 - 10: 72.7% MACE over next 6 weeks - Early Invasive Strategies Family History: Family History: Noncontributory to presentation Current Medications: Current Meds: See nursing for home meds Allergies: Allergies: Allergies Coded Allergies Type Severity Reaction Last Updated Verified povidone-iodine Allergy Unknown 06/29/19 Yes soap Allergy Unknown 06/29/19 Yes Physical Exam: PE: Constitutional: Well developed, well nourished, no acute distress, non-toxic appearance. [] HENT: Normocephalic, atraumatic, bilateral external ears normal, oropharynx moist, no oral exudates, nose normal. [] Eyes: PERRLA, EOMI, conjunctiva normal, no discharge. [] Neck: Normal range of motion, no tenderness, supple, no stridor. [] Cardiovascular:Heart rate regular rhythm, no murmur [] Lungs & Thorax: Bilateral breath sounds equal apex on auscultation [. Patient] few scattered wheezes on auscultation Abdomen: Bowel sounds normal, soft, no tenderness, no masses, no pulsatile masses. [] scar Skin: Warm, dry, no erythema, no rash. [] Back: No tenderness, no CVA tenderness. [] Scoliosis. Extremities: No tenderness, no cyanosis, no clubbing, ROM intact, no edema. [] No cording in the legs. Scar left ankle. Neurologic: Alert and oriented X 3, normal motor function, normal sensory function, no focal deficits noted. [] Psychologic: Affect anxious, judgement normal, mood normal. [] Current Patient Data: Vital Signs: Vital Signs Date Time Temp Pulse Resp B/P (MAP) Pulse Ox O2 Delivery O2 Flow Rate FiO2 02/19/20 17:20 98.8 80 18 136/84 (101) 99 Room Air EKG: EKG: [] Radiology/Procedures: Radiology/Procedures: [][place] [address] IMAGING REPORT Signed PATIENT: MALINDA MURPHY MACCOUNT: [id number] : 1995 LOCATION: ER AGE: 24 SEX: F EXAM STATUS: REG ER ORD. PHYSICIAN: ALAINA GOODWIN MD REASON: dyspnea PROCEDURE: PORTABLE CHEST 1V PORTABLE CHEST 1V History: Dyspnea Comparison: None. Findings: No consolidation or pleural effusion. Normal heart size. No pneumothorax. Impression: 1. No acute cardiopulmonary process. Electronically signed by: Nicanor Ch DO (02/19/2020 7:01 PM) [facility] DICTATED AND SIGNED BY: NICANOR CH DO DATE: 02/19/201900 CC: ALAINA GOODWIN MD; YOSHI WOODWARD MD ~ Course & Med Decision Making: Course & Med Decision Making Pertinent Labs and Imaging studies reviewed. (See chart for details) Self Isolate. No contact with others x 14 days. Must practice social isolation. Tylenol and Ibuprofen for discomfort. No smoking. Follow up with primary. Use MDI two puffs four times a day. Return if any concern. [] Impression; 1. Viral Syndrome Dragon Disclaimer: Dragon Disclaimer: This electronic medical record was generated, in whole or in part, using a voice recognition dictation system. Departure Departure: Disposition: HOME/RESIDENCE PRIOR TO ADM Condition: STABLE Referrals: YOSHI WOODWARD MD (PCP) Scripts Albuterol Sulfate (VENTOLIN HFA INHALER) 18 Gm Hfa.aer.ad 2 PUFF IH PRN Q4HRS PRN for FOR ASTHMA for 30 Days, INHALER 0 Refills Prov: ALAINA GOODWIN MD 02/19/20 Draglowell Disclaimer This chart was dictated in whole or in part using Voice Recognition software in a busy, high-work load, and often noisy Emergency Department environment. It may contain unintended and wholly unrecognized errors or omissions. Dragon Disclaimer This chart was dictated in whole or in part using Voice Recognition software in a busy, high-work load, and often noisy Emergency Department environment. It may contain unintended and wholly unrecognized errors or omissions. Dragon Disclaimer This chart was dictated in whole or in part using Voice Recognition software in a busy, high-work load, and often noisy Emergency Department environment. It may contain unintended and wholly unrecognized errors or omissions. ALAINA GOODWIN MD February 19, 2020 18:17
[2020-02-19] MEDS ORDERED: ALBU2.5V8 IH (18:21)
[2020-02-19 19:00] LABS: BASO % 0 % (0-3); EOS % 1 % (0-3); HEMATOCRIT 41.1 % (36.0-47.0); HEMOGLOBIN 13.5 g/dL (12.0-15.5); LYMPH # 2.2 x10^3/uL (1.0-4.8); LYMPH % 25 % (24-48); MEAN CORPUSCULAR HEMOGLOBIN 32 pg (25-35); MEAN CORPUSCULAR HGB CONC 33 g/dL (31-37); MEAN CORPUSCULAR VOLUME 97 fL (79-100); MONO # 0.5 x10^3/uL (0.0-1.1); MONO % 6 % (0-9); NEUT # 6.1 x10^3uL (1.8-7.7); NEUT % 69 % (31-73); PLATELET COUNT 232 x10^3/uL (140-400); RED BLOOD COUNT 4.25 x10^6/uL (3.50-5.40); RED CELL DISTRIBUTION WIDTH 14.3 % (11.5-14.5); WHITE BLOOD COUNT 8.9 x10^3/uL (4.0-11.0)
[2020-02-19 19:04] LABS: CALCIUM 8.9 mg/dL (8.5-10.1); CREATININE 0.8 mg/dL (0.6-1.0); GFR 105.8; POTASSIUM 4.5 mmol/L (3.5-5.1)
--- NOTE | 2020-02-19 19:04 | RAD ---
PORTABLE CHEST 1V History: Dyspnea Comparison: None. Findings: No consolidation or pleural effusion. Normal heart size. No pneumothorax. Impression: 1. No acute cardiopulmonary process. Electronically signed by: Nicanor Ch DO (02/19/2020 7:01 PM) [facility]
[2020-02-19 19:17] LABS: ALBUMIN 3.7 g/dL (3.4-5.0); DIRECT BILIRUBIN 0.1 mg/dL (0.0-0.2); TOTAL BILIRUBIN 0.2 mg/dL (0.2-1.0); TOTAL PROTEIN 6.7 g/dL (6.4-8.2)
[2020-02-19 20:13] LABS: BARBITURATES NEG (NEG); BENZODIAZEPINES NEG (NEG); CANNABINOIDS POS (NEG); COCAINE NEG (NEG); METHADONE NEG (NEG); OPIATES NEG (NEG); PHENCYCLIDINE NEG (NEG)
[2020-02-19 20:17] LABS: AMPHETAMINE/METHAMPHETAMINE NEG (NEG)
== END 2020-02-19 21:25 | disposition home or self-care (01) ==
LOC: ER 16:06
DX: B34.9 Viral infection, unspecified (principal); Z88.8 Allergy status to other drugs, medicaments and biological substances; F12.10 Cannabis abuse, uncomplicated
CPT/HCPCS: 36415; 71045; 80048; 80076; 80307; 82550; 83880; 84484; 85025; 99284

== ENCOUNTER 2021-02-03 08:44 | Emergency (ER) | payer OTHER ==
[~2021-02-03] VITALS: Ht 167.6 cm; Wt 65.5 kg
[2021-02-03 08:44] VITALS: BP 109/61
[~2021-02-03 08:44] MED LIST changes: +ALBU2.5V8 IH
--- NOTE | 2021-02-03 10:09 | RAD ---
EXAM: 2 VIEW ABDOMEN WITH ONE VIEW CHEST. HISTORY: Abdominal and pelvic pain.. COMPARISON: 02/19/2020. FINDINGS: A frontal view of the chest and supine/upright views of the abdomen are obtained. There are no confluent infiltrates. There is no pneumothorax or pleural effusion. The heart is not en larged. There is a mild thoracolumbar S-shaped scoliosis. There is no pneumoperitoneum. There are no distended small bowel loops or significant air-fluid level s. There is gas distally. IMPRESSION: 1. No confluent infiltrates. 2. No evidence of obstruction. Electronically signed by: Phyllis Quach MD (02/03/2021 10:07 AM) [facility]
--- NOTE | 2021-02-03 10:53 | RAD ---
EXAM: Pelvic sonogram. HISTORY: Pain. TECHNIQUE: Sonographic imaging of the pelvis was performed. COMPARISON: None. FINDINGS: The uterus measures 9.0 x 5.3 x 4.1 cm. The individual stripe measures 11 mm in thickness. The ovaries are normal in size and demonstrate normal blood flow. There are small bilateral ovarian a ntral follicles. There is a dominant left ovarian follicle measuring 1.7 cm. There is a small amount of free fluid in the posterior cul-de-sac. IMPRESSION: 1. Small amount of pelvic free fluid, within physiologic limits for a premenopausal female. 2. 1.7 cm dominant physiologic left ovarian follicle. Electronically signed by: Kenia Torres MD (02/03/2021 10:50 AM) [id number]
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
== END 2021-02-03 11:22 | disposition home or self-care (01) ==
LOC: ER 08:44
DX: N83.202 Unspecified ovarian cyst, left side (principal); Z98.890 Other specified postprocedural states; Z88.8 Allergy status to other drugs, medicaments and biological substances
CPT/HCPCS: 74022; 76830; 76856; 81025; 99284

== ENCOUNTER 2021-03-21 06:41 | Emergency (ER) | payer OTHER ==
[~2021-03-21] VITALS: Ht 167.6 cm; Wt 62.9 kg
--- NOTE | 2021-03-21 07:26 | PHYS DOC ---
Past History Past Medical History: Other Additional Past Medical Histor: scoliosis Past Surgical History: , Other Additional Past Surgical Histo: left ankle repair Smoking: Non-smoker Alcohol Use: Occasionally Drug Use: Marijuana Adult General Chief Complaint Chief Complaint: VAGINAL PROBLEM HPI HPI Patient is a 26-year-old female presenting for vaginal discharge. Onset was 2 weeks ago. Reports having x1 sexual partner whom she has intercourse with that is unprotected, states it is her but also reports they are in the middle of a divorce so she is unsure if he has been unfaithful to her. Denies any pain or fever, just admits a white discolored discharge that is uncomfortable. She tried Monistat as this typically helps with similar symptoms in the past but after x3 doses, she still had symptoms prompting her to come in for evaluation today Review of Systems Review of Systems Fourteen body systems of review of systems have been reviewed. See HPI for pertinent positives and negative responses, other zeng all other systems are negative, non-pertinent or non-contributory Allergies Allergies Allergies Coded Allergies Type Severity Reaction Last Updated Verified povidone-iodine Allergy Unknown 06/29/19 Yes soap Allergy Unknown 06/29/19 Yes Physical Exam Physical Exam Constitutional: Well developed, well nourished, no acute distress, non-toxic appearance. HENT: Normocephalic, atraumatic, bilateral external ears normal, oropharynx moist, no oral exudates, nose normal. Eyes: PERRLA, EOMI, conjunctiva normal, no discharge. Neck: Normal range of motion, no tenderness, supple, no stridor. Cardiovascular: Heart rate regular, sinus rhythm, no murmurs rubs or gallops Lungs & Thorax: Bilateral breath sounds clear to auscultation Abdomen: Bowel sounds normal, soft, no tenderness, no masses, no pulsatile masses. Nonsurgical abdomen, no peritoneal signs : Deferred Skin: Warm, dry, no erythema, no rash. Back: No tenderness, no CVA tenderness. Extremities: No tenderness, no cyanosis, no clubbing, ROM intact, no edema. Neurologic: Alert and oriented X 3, grossly normal motor & sensory function, no focal deficits noted. Psychologic: Affect normal, judgement normal, mood normal. Current Patient Data Lab Results Laboratory Tests Test 03/21/21 07:05 03/21/21 07:18 Urine Collection Type Unknown Urine Color Straw Urine Clarity Clear Urine pH 6.5 Urine Specific [place] >=1.030 Urine Protein Neg Urine Glucose (UA) Neg mg/dL Urine Ketones (Stick) Neg mg/dL Urine Blood Mod Urine Nitrite Neg Urine Bilirubin Neg Urine Urobilinogen Dipstick 0.2 mg/dL Urine Leukocyte Esterase Neg Urine RBC 3-5 /HPF Urine WBC Rare /HPF Urine Squamous Epithelial Cells Few /LPF Urine Bacteria 0 /HPF Bedside Urine HCG, Qualitative hcg negative EKG EKG [] Radiology/Procedures Radiology/Procedures [] Heart Score C/O Chest Pain: No Risk Factors: Risk Factors: DM, Current or recent (<one month) smoker, HTN, HLP, family history of CAD, obesity. Risk Scores: Risk Factors: DM, Current or recent (<one month) smoker, HTN, HLP, family history of CAD, obesity. Course & Med Decision Making Course & Med Decision Making Discussed with the patient all findings and diagnostic testing. I discussed most likely diagnosis of bacterial vaginosis with gonorrhea and Chlamydia testing pending. Flagyl administered while in ER, joint decision made to treat prophylactically for gonorrhea and chlamydia with Rocephin and doxycycline. I stressed need for close outpatient follow-up to review today's ER visit. Strict return precautions were also discussed at length with good understanding by patient. Patient voiced understanding and agreement with the plan. Patient knows to come back for repeat evaluation if concerning signs or symptoms present prior to outpatient follow-up. Hemodynamically stable, ambulatory and well- appearing at time of disposition. Dragon Disclaimer Dragon Disclaimer This electronic medical record was generated, in whole or in part, using a voice recognition dictation system. Departure Departure: Impression: Primary Impression: Bacterial vaginitis Additional Impression: Contact with and (suspected) exposure to infections with a predominantly sexual mode of transmission Disposition: HOME / SELF CARE / HOMELESS Condition: STABLE Referrals: PCP,NO (PCP) Additional Instructions: You were seen for vaginal discharge. You were tested for the most common STDs. You were diagnosed with bacterial vaginitis as discussed; however, we are still pending results for your gonorrhea and Chlamydia testing. It is not clear when/where you became infected and many people can be asymptomatic. You need to have testing for syphilis, hepatitis, and other STD/STI testing done at the health department or your primary care doctor's office. You should avoid sex for the next week and use condoms in the future. You must have all your sexual partners tested, treated, and avoid sexual intercourse for 1 week after all parties have finished treatment. Strict adherence may still not prevent re- infection. Return to the ED if you develop any new or concerning symptoms. Scripts Metronidazole (FLAGYL) 500 Mg Tablet 1 TAB PO BID for BACTERIAL VAGINOSIS, #13 TAB Prov: JUNAID BROWN DO 03/21/21 Doxycycline Hyclate (DOXYCYCLINE HYCLATE) 100 Mg Tablet 1 TAB PO BID for STI, #13 TAB Prov: JUNAID BROWN DO 03/21/21 Problem Qualifiers JUNAID BROWN DO Mar 21, 2021 07:26
[2021-03-21 08:10] LABS: BILIRUBIN,URINE NEG (NEG); CLARITY,URINE CLEAR; COLOR,URINE STRAW; GLUCOSE,URINE NEG (NEG); NITRITE,URINE NEG (NEG); UROBILINOGEN,URINE 0.2 mg/dL (0.2 mg/dL)
[2021-03-21 08:11] LABS: BACTERIA,URINE 0 /HPF (0-FEW); SQUAMOUS EPITHELIAL CELL,UR FEW /LPF; WBC,URINE RARE /HPF (0-4)
[2021-03-21 08:39] VITALS: BP 106/69
[2021-03-21] MEDS ORDERED: DOXY100T PO (08:43)
[2021-03-21] MEDS ORDERED: METR500T PO (08:43)
[2021-03-21] MEDS ORDERED: metroNIDAZOLE 500 MG TABLET PO ONE (08:45)
[2021-03-21] MEDS ORDERED: DOXYCYCLINE HYCLATE 100 MG TABLET PO ONE (08:45)
== END 2021-03-21 08:53 | disposition home or self-care (01) ==
LOC: ER 06:41
DX: N89.8 Other specified noninflammatory disorders of vagina (principal); F12.10 Cannabis abuse, uncomplicated; Z88.6 Allergy status to analgesic agent; Z20.2 Contact with and (suspected) exposure to infections with a predominantly sexual mode of transmission
CPT/HCPCS: 36415; 81001; 81025; 87491; 87591; 99283; Q0111